=== PATIENT | male | born 1930 | race Hispanic/Latino ===

== ENCOUNTER 2018-02-23 07:49 | Outpatient (CLI) | payer MEDICARE, OTHER ==
--- NOTE | 2018-02-23 11:29 | RAD ---
UPPER GI: Date: 02/23/18 HISTORY: Epigastric pain. EXPOSURE: 2.1 minutes. 138.79 mGy*cm^2. FINDINGS: Initial 1 view of the abdomen demonstrates a nonspecific bowel gas pattern. No suspicious densities i n the abdomen or pelvis. Surgical clips are noted in the right upper quadrant and left and right carmen pelvis. The cervical and thoracic esophagus have an overall normal course and caliber. There is a small amoun t of esophageal dysmotility with tertiary contractions. Small amount of gastroesophageal reflux is no libby during intermittent fluoroscopy. The gastric mucosal is grossly unremarkable. Evaluation is somewhat limited. Visualized small bowel l oops have an overall normal appearance. IMPRESSION: 1. Mild component of esophageal dysmotility with tertiary contraction. 2. Small amount of gastroesophageal reflux disease. POS: [facility]
== END 2018-02-23 07:50 | disposition home or self-care (01) ==
LOC: RAD 07:49
PROVIDERS: ATTEND Family Medicine
DX: R10.13 Epigastric pain (principal); K21.9 Gastro-esophageal reflux disease without esophagitis; K22.4 Dyskinesia of esophagus; K22.2 Esophageal obstruction
CPT/HCPCS: 74247

== ENCOUNTER 2018-09-11 15:57 | Emergency (ER) | payer MEDICARE, OTHER ==
[2018-09-11] MEDS ORDERED: Acetaminophen 500 MG TAB ONE (17:49)
--- NOTE | 2018-09-11 17:51 | CT ---
FCT Brain WO Con: 09/11/2018 5:26 PM CLINICAL HISTORY: Fall, head injury, pain. COMPARISON: None. FINDINGS: Hemorrhage: None. Ventricular system: Age appropriate in size. Cerebral parenchyma: Scattered hypodensities indicative of moderate chronic ischemic disease Midline shift: None. Calvarium: Normal. There is posterior left parietal scalp hematoma. Visualized Paranasal sinuses: Mild mucosal thickening. IMPRESSION: No acute intracranial abnormalities.
--- NOTE | 2018-09-11 17:53 | CT ---
CT CERVICAL SPINE NONCONTRAST: 09/11/18 HISTORY: 87-year-old male status post acute cervical trauma from fall. FINDINGS: There are no jumped or perched facets. There is no evidence of acute fracture. The vertebral body h eights are maintained. There is no prevertebral soft tissue swelling. There are degenerative disc c hanges and facet osteoarthrosis. IMPRESSION: 1) Cervical spondylosis. 2) No evidence of acute fracture or acute traumatic subluxation. sky [] POS: [facility]
== END 2018-09-11 19:18 | disposition home or self-care (01) ==
LOC: ERS 15:57
DX: S00.01XA Abrasion of scalp, initial encounter (principal); I10 Essential (primary) hypertension; E11.9 Type 2 diabetes mellitus without complications; Z79.84 Long term (current) use of oral hypoglycemic drugs; Z79.899 Other long term (current) drug therapy; Z79.82 Long term (current) use of aspirin; W17.89XA Other fall from one level to another, initial encounter
CPT/HCPCS: 70450; 72125; 93005

== ENCOUNTER 2020-06-26 13:19 | Inpatient (IN) | payer MEDICARE, OTHER ==
[2020-06-26] MEDS ORDERED: Famotidine/PF 20 mg/2ml Vial ONE (14:01)
[2020-06-26] MEDS ORDERED: methylPREDNISolone Sod Succ/PF 125 MG/2 ML VIAL ONE (14:01)
[2020-06-26] MEDS ORDERED: diphenhydrAMINE 50 MG/ML VIAL ONE (14:01)
[2020-06-26 14:08] LABS: #Eosinphils 0.3 thou/uL (0.0-0.7); #Lymphocytes 0.5 thou/uL (1.20-3.40); #Monocytes 0.4 thou/uL (0.11-0.59); #Neutrophils 5.1 thou/uL (1.40-6.50); %Basophils 0.1 % (0.0-1.0); %Lymphocytes 8.4 % (21.0-51.0); %Monocytes 5.5 % (0.0-10.0); Hemoglobin 15.6 g/dL (14.0-18.0); Mean Corpuscular HGB CONC 33.4 g/dL (32.0-36.0); Mean Corpuscular Hemoglobin 30.8 pg (27.0-31.0); Mean Corpuscular Volume 92.1 fL (78.0-98.0); Mean Platelet Volume 7.4 fL (7.4-10.4); Platelet Count 185 thou/uL (130-400); RBC Distribution Width 13.2 % (11.5-14.5); Red Blood Cell (RBC) Count 5.08 mill/uL (4.70-6.10); White Blood Cell (WBC) Count 6.3 thou/uL (4.8-10.8)
--- NOTE | 2020-06-26 14:26 | RAD ---
CHEST 1 VIEW: Date: 06/26/2020 HISTORY: Weakness. COMPARISON: Radiograph of 01/28/2017. FINDINGS: Lungs are slightly hypoinflated. No confluent air space consolidation, pneumothorax, or effusion. No acute osseous abnormality. IMPRESSION: Right rotator cuff insufficiency. IMPRESSION: Cardiomegaly and lung hypoinflation. POS: [facility]
[2020-06-26 14:29] LABS: ALT (SGPT) 17 U/L (8-55); AST (SGOT) 26 U/L (5-34); Albumin 4.1 g/dL (3.4-4.8); Alkaline Phosphatase 61 U/L (40-110); Anion Gap 16 mmol/L (10-20); BUN (Urea Nitrogen) 16 mg/dL (8.4-25.7); Bilirubin, Total 1.4 mg/dL (0.2-1.2); Calc. Creatinine Clearance 0 mL/min (70-130); Calcium 9.1 mg/dL (7.8-10.44); Carbon Dioxide 24 mmol/L (23-31); Chloride 101 mmol/L (98-107); Globulin 3.1 g/dL (2.4-3.5); Glucose 181 mg/dL (83-110); Potassium 3.6 mmol/L (3.5-5.1); Protein, Total 7.2 g/dL (5.8-8.1); Sodium 137 mmol/L (136-145)
[2020-06-26 14:50] LABS: CKMB 2.4 ng/mL (0-6.6)
[2020-06-26] MEDS ORDERED: Acetaminophen 500 MG TAB ONE (14:55)
[2020-06-26 17:34] LABS: Troponin I 0.048 ng/mL (< 0.028)
[2020-06-26 18:03] LABS: Lactic Acid 1.7 mmol/L (0.5-2.2)
[2020-06-26] MEDS ORDERED: Acetaminophen 325 MG TAB PO PRN (18:11)
[2020-06-26 18:17] LABS: Bilirubin Negative (Negative); Blood, Urine Trace (Negative); Glucose, Urine (Dipstick) Negative (Negative); Ketone, Urine Negative (Negative); Leukocyte Negative (Negative); Nitrite Positive (Negative); Protein, Urine (Dipstick) Trace mg/dL (Neg-Trace); Urobilinogen 0.2 mg/dL (Less than 2)
--- NOTE | 2020-06-26 18:22 | PDOC.HHP ---
Hospitalist HPI - History of Present Illness Weakness and rash History of Present Illness: Patient is an 89-year-old male with a history of diabetes, hypertension, hyperlipidemia, mild coronary disease, CKD stage III, prostate cancer. He presented to the emergency department with rash and generalized weakness. The patient follows with Dr. Sy for cardiology. He apparently was recently started on amiodarone and Eliquis on June 16 for atrial fibrillation. On June 21 he also received a COVID-19 vaccine dose. Within 48 hours of that the patient started experiencing some generalized rash. Has dense modestly pruritic erythematous macules over his entire body. He had some associated generalized weakness. He had some swelling of his face and throat. His lips especially were swollen. He reported feeling like he had something in his throat that he could not clear. He did not have associated shortness of breath. He ultimately became so weak that he had inability to get out of the bathtub. He was subsequently brought to the emergency department. He denies any fevers or chills. ED Course: The emergency department patient was felt to have angioedema or allergic reaction. He was given IV methylprednisolone 125 mg. Was also given famotidine, Tylenol, diphenhydramine 50 mg and 1 L of fluids. Since that time the patient has had significant improvement in the swelling in his face. The patient and his son confirm this. The nurse who is caring for him confirmed it as well. He has been able to eat. Hospitalist ROS - Review of Systems Constitutional: reports: weakness. denies: fever, chills Respiratory: denies: cough, shortness of breath, SOB with excertion Cardiovascular: denies: chest pain, palpitations Gastrointestinal: denies: nausea, vomiting, abdominal pain Genitourinary: denies: dysuria, frequency Neurological: reports: weakness All other systems reviewed; all pertinent +/- noted in HPI/Subj - Medication Medications: metFORMIN FriJun 26, 2020 13:55 ROSEANNE Chatman Jennifer TABLET : Strength - 500 mg : ORAL Patient Dose: 1 tab(s) Oral once a day (in the evening).W/MEAL. Crestor FriJun 26, 2020 13:55 ROSEANNE Chatman Jennifer TABLET : Strength - 10 mg : ORAL Patient Dose: 10 mg Oral once a day (at bedtime). aspirin oral FriJun 26, 2020 13:56 ROSEANNE Chatman Jennifer TABLET : Strength - 81 mg : ORAL Patient Dose: 1 tab(s) Oral once a day. lisinopril FriJun 26, 2020 13:57 ROSEANNE Chatman Jennifer tablet : Strength - 10 mg : ORAL Patient Dose: 1 tab(s) Oral once a day (in the morning). amiodarone oral FriJun 26, 2020 13:57 ROSEANNE Chatman Jennifer tablet : Strength - 200 mg : ORAL Patient Dose: 1 tab(s) Oral 2 times a day. iron ER capsule,extended release FriJun 26, 2020 13:58 ROSEANNE Chatman Jennifer capsule, extended release : Strength - 325 mg (65 mg iron) : ORAL Patient Dose: 1 tab(s) Oral once a day. carvedilol FriJun 26, 2020 13:58 ROSEANNE Chatman Jennifer tablet : Strength - 3.125 mg : ORAL Patient Dose: 1 tab(s) Oral 2 times a day (before meals). Eliquis FriJun 26, 2020 13:59 ROSEANNE Chatman Jennifer tablet : Strength - 5 mg : ORAL Patient Dose: 1 tab(s) Oral 2 times a day. Hospitalist History - Past Medical History Cardiac: reports: AFIB, CAD, HTN, Hyperlipidemia Heme/Onc: reports: Cancer (Prostate cancer) Renal/: reports: Chronic renal insuff (Stage III) - Past Surgical History Past Surgical History: reports: Cholecystectomy, Other (Radical prostatectomy) - Family History Family History: reports: diabetes mellitus, hypertension - Social History Smoking Status: Former smoker (Very minimal when he was in the in the 1950s) Alcohol: reports: None Drugs: reports: none Living Situation: With Family - Exam General Appearance: NAD, awake alert Eye: PERRL ENT - other findings: This point is mildly swollen lips. No OP lesions Neck: supple, symmetric, no JVD Heart: no murmur, no gallops, no rubs, irregular Respiratory: CTAB, no wheezes, no rales, no ronchi Gastrointestinal: soft, non-tender, non-distended, normal bowel sounds, no palpable masses, no hepatomegaly, no splenomegaly Extremities: no cyanosis, no clubbing, no edema Skin - other findings: Diffuse macular erythema diffusely. Worst on the back. Neurological: no focal deficits Musculoskeletal: normal tone, generalized weakness Psychiatric: normal affect, normal behavior Hospitalist Results - Labs Result Diagrams: 06/26/20 13:45 06/26/20 13:45 Lab results: WBC 6.3 thou/uL (4.8-10.8) 06/26/20 13:45 Hgb 15.6 g/dL (14.0-18.0) 06/26/20 13:45 Hct 46.7 % (42.0-52.0) 06/26/20 13:45 MCV 92.1 fL (78.0-98.0) 06/26/20 13:45 Plt Count 185 thou/uL (130-400) 06/26/20 13:45 Neutrophils % 81.0 % (42.0-75.0) H 06/26/20 13:45 Sodium 137 mmol/L (136-145) 06/26/20 13:45 Potassium 3.6 mmol/L (3.5-5.1) 06/26/20 13:45 Chloride 101 mmol/L (98-107) 06/26/20 13:45 Carbon Dioxide 24 mmol/L (23-31) 06/26/20 13:45 BUN 16 mg/dL (8.4-25.7) 06/26/20 13:45 Creatinine 1.49 mg/dL (0.7-1.3) H 06/26/20 13:45 Glucose 181 mg/dL (83-110) H 06/26/20 13:45 Lactic Acid 1.7 mmol/L (0.5-2.2) 06/26/20 17:38 Calcium 9.1 mg/dL (7.8-10.44) 06/26/20 13:45 Total Bilirubin 1.4 mg/dL (0.2-1.2) H 06/26/20 13:45 AST 26 U/L (5-34) 06/26/20 13:45 ALT 17 U/L (8-55) 06/26/20 13:45 Alkaline Phosphatase 61 U/L (40-110) 06/26/20 13:45 CK-MB (CK-2) 2.4 ng/mL (0-6.6) 06/26/20 13:45 Troponin I 0.048 ng/mL (< 0.028) H 06/26/20 16:48 Serum Total Protein 7.2 g/dL (5.8-8.1) 06/26/20 13:45 Albumin 4.1 g/dL (3.4-4.8) 06/26/20 13:45 Hospitalist H&P A/P - Problem (1) Allergic reaction Code(s): T78.40XA - ALLERGY, UNSPECIFIED, INITIAL ENCOUNTER Status: Acute (2) Atrial fibrillation Code(s): I48.91 - UNSPECIFIED ATRIAL FIBRILLATION Status: Acute (3) Diabetes Code(s): E11.9 - TYPE 2 DIABETES MELLITUS WITHOUT COMPLICATIONS Status: Acute (4) HTN (hypertension) Code(s): I10 - ESSENTIAL (PRIMARY) HYPERTENSION Status: Acute (5) Weakness Code(s): R53.1 - WEAKNESS Status: Acute - Plan Plan: Allergic reaction: Strongly suspect this patient has had an allergic reaction to the COVID-19 vaccine. This rash initially occurred within 48 hours of the vaccine. Other possibilities include the amiodarone and Eliquis which were started the week prior. Patient has had swelling of the lips and apparently the pharynx at some point as well based on his symptoms. He has received antihistamines and steroids in the emergency department and appears to be substantially improved from the swelling perspective. He has persistent diffuse macular erythema. We will continue steroids and add loratadine and famotidine. We will observe overnight just to ensure his airway stays patent. Atrial fibrillation: Patient has been on amiodarone and Eliquis. Do not suspect these as culprit in his reaction. Nonetheless we will hold those for now and potentially discuss with cardiology in the morning. Hypertension: Patient is on an MARCIA inhibitor. I do not believe this is angioedema from an MARCIA inhibitor. Resume his usual home dose. Diabetes mellitus: Patient will likely have significant hyperglycemia because of the steroids. We will continue with his home Metformin and continue to monitor his blood sugars. May need to add sliding scale insulin. Generalized weakness: May be associated with his atrial fibrillation or his medication reaction. We will ask physical therapy to assess him.
[2020-06-26 18:25] LABS: Clarity Clear (Clear)
[2020-06-26 18:26] LABS: Bacteria/HPF 2+ HPF (None Seen); RBC/HPF None Seen HPF (0-3); Squamous Epithelial 0-3 HPF (0-3); WBC/HPF None Seen HPF (0-3)
[2020-06-26] MEDS ORDERED: Dextrose 50% Abboject 50 ML SYRINGE SLOW IVP PRN (18:37)
[2020-06-26] MEDS ORDERED: Dextrose 5% in Water 1,000 ML IV PRN (18:37)
[2020-06-26] MEDS ORDERED: Famotidine 20 MG TAB ONE (20:56)
[2020-06-26] MEDS: Famotidine 20 MG TAB PO SCH (21:03)
[2020-06-26] MEDS: Rosuvastatin 10 MG TAB PO SCH (21:03)
[2020-06-26] MEDS: Loratadine 10 MG TAB PO SCH (21:03)
[2020-06-26] MEDS: methylPREDNISolone Sod Succ 40 MG VIAL IVP SCH (23:26)
[2020-06-26 23:46] VITALS: BMI 26.9
[2020-06-27 04:50] LABS: Anion Gap 14 mmol/L (10-20); BUN (Urea Nitrogen) 19 mg/dL (8.4-25.7); Calc. Creatinine Clearance 47 mL/min (70-130); Calcium 8.9 mg/dL (7.8-10.44); Carbon Dioxide 24 mmol/L (23-31); Chloride 105 mmol/L (98-107); Glucose 218 mg/dL (83-110); Potassium 3.7 mmol/L (3.5-5.1); Sodium 139 mmol/L (136-145)
[2020-06-27] MEDS: methylPREDNISolone Sod Succ 40 MG VIAL IVP SCH ×3 (05:38→18:01)
[2020-06-27] MEDS: HumaLOG 300 UNITS/3 ML VIAL SC PRN ×3 (06:26→17:54)
[2020-06-27] MEDS: Loratadine 10 MG TAB PO SCH ×2 (08:18→19:49)
[2020-06-27] MEDS: Lisinopril 10 MG TAB PO SCH (08:18)
[2020-06-27] MEDS: Carvedilol 3.125 MG TAB PO SCH ×2 (08:18→17:57)
[2020-06-27] MEDS: Aspirin 81 mg Enteric Coated Tablet PO SCH (08:18)
[2020-06-27] MEDS ORDERED: FLU VACC QS2020-21(65YR UP)/PF 240 MCG/0.7 ML SYRINGE IM ONE (09:00)
--- NOTE | 2020-06-27 09:53 | PDOC.HOSPP ---
- Subjective Encounter Date: 06/27/20 Encounter Time: 09:00 Subjective: still has rash with itching over his neck and back area no c/o palp or chest pain is trying to get a shower now - Objective Vital Signs & Weight: Vital Signs (12 hours) Temp Pulse Resp BP BP Pulse Ox 06/27/20 08:18 178/86 H 06/27/20 08:00 97.5 F L 72 16 178/86 H 97 06/27/20 07:53 98 06/27/20 07:00 97 F L 72 16 178/86 H 97 06/27/20 04:00 97.4 F L 90 20 175/101 H 98 Weight Weight 176 lb 14.4 oz I&O: 06/26/20 06/27/20 06/28/20 06:59 06:59 06:59 Intake Total 480 Output Total 300 Balance 180 Result Diagrams: 06/26/20 13:45 06/27/20 04:12 Additional Labs: Accuchecks 06/27/20 06/26/20 06:01 23:00 POC Glucose 210 H 241 H Hospitalist ROS - Medication Medications: Active Medications Generic Name Dose Route Start Last Admin Trade Name Freq PRN Reason Stop Dose Admin Aspirin 81 mg 06/27/20 09:00 06/27/20 08:18 Aspirin 81 Mg Enteric Coated Tablet PO 81 mg DAILY DEMAR Administration Carvedilol 3.125 mg 06/27/20 08:00 06/27/20 08:18 Carvedilol 3.125 Mg Tab PO 3.125 mg BID-WM DEMAR Administration Famotidine 20 mg 06/26/20 21:00 06/26/20 21:03 Famotidine 20 Mg Tab PO 20 mg 2100 DEMAR Administration Insulin Human Lispro 0 units 06/26/20 18:37 06/27/20 06:26 Humalog 300 Units/3 Ml Vial SC 3 unit .MILD SLIDING SCALE PRN Administration Mild Correctional Scale Lisinopril 10 mg 06/27/20 09:00 06/27/20 08:18 Lisinopril 10 Mg Tab PO 10 mg DAILY DEMAR Administration Loratadine 10 mg 06/26/20 21:00 06/27/20 08:18 Loratadine 10 Mg Tab PO 10 mg BID DEMAR Administration Methylprednisolone Sodium Succinate 40 mg 06/26/20 23:59 01/19/21 05:38 Methylprednisolone Sod Succ 40 Mg Vial IVP 40 mg Q6HR DEMAR Administration Rosuvastatin Calcium 10 mg 06/26/20 21:00 06/26/20 21:03 Rosuvastatin 10 Mg Tab PO 10 mg HS DEMAR Administration - Exam General Appearance: awake alert Eye: PERRL, anicteric sclera ENT: no oropharyngeal lesions, moist mucosa Neck: supple, no JVD Heart: RRR, no murmur Respiratory: no wheezes, no rales, no ronchi Gastrointestinal: soft, non-tender, non-distended, normal bowel sounds Extremities: no cyanosis, no edema Skin - other findings: has raised erythematous lesions all over Neurological: cranial nerve grossly intact, no focal deficits Psychiatric: normal affect Hosp A/P (1) Allergic reaction Code(s): T78.40XA - ALLERGY, UNSPECIFIED, INITIAL ENCOUNTER Status: Acute Qualifiers: Encounter type: subsequent encounter Qualified Code(s): T78.40XD - Allergy, unspecified, subsequent encounter (2) CAD (coronary artery disease) Code(s): I25.10 - ATHSCL HEART DISEASE OF [place] CORONARY ARTERY W/O ANG PCTRS Status: Chronic Qualifiers: Coronary Disease-Associated Artery/Lesion type: [place] artery [place] vs. transplanted heart: [place] heart Associated angina: without angina Qualified Code(s): I25.10 - Atherosclerotic heart disease of [place] coronary artery without angina pectoris (3) Atrial fibrillation Code(s): I48.91 - UNSPECIFIED ATRIAL FIBRILLATION Status: Chronic Qualifiers: Atrial fibrillation type: longstanding persistent Qualified Code(s): I48.11 - Longstanding persistent atrial fibrillation (4) Weakness Code(s): R53.1 - WEAKNESS Status: Acute (5) Diabetes Code(s): E11.9 - TYPE 2 DIABETES MELLITUS WITHOUT COMPLICATIONS Status: Chronic Qualifiers: Diabetes mellitus type: type 2 Diabetes mellitus terminal clerk insulin use: without terminal clerk use (6) HTN (hypertension) Code(s): I10 - ESSENTIAL (PRIMARY) HYPERTENSION Status: Chronic Qualifiers: Hypertension type: essential hypertension Qualified Code(s): I10 - Essential (primary) hypertension (7) Prostate CA Code(s): C61 - MALIGNANT NEOPLASM OF PROSTATE Status: Chronic - Plan rash is still persistent with itching but has gotten better per patient is on asp, coreg, lisinopril, metformin, steroids, crestor off amiodarone and eliquis for now, await 's adv mobilize as tolerated hemostable
[2020-06-27 14:17] LABS: SARS-CoV-2 PCR by NAA Not Detected (NotDetected)
[2020-06-27] MEDS ORDERED: metFORMIN 500 MG TAB PO SCH (17:00)
[2020-06-27] MEDS: Rosuvastatin 10 MG TAB PO SCH (19:49)
[2020-06-27] MEDS: Famotidine 20 MG TAB PO SCH (19:49)
[2020-06-28] MEDS: methylPREDNISolone Sod Succ 40 MG VIAL IVP SCH ×3 (00:47→12:05)
[2020-06-28] MEDS: HumaLOG 300 UNITS/3 ML VIAL SC PRN ×2 (05:40→12:37)
[2020-06-28] MEDS ORDERED: cefTRIAXone\\ROCEPHIN 1 GM in Sodium Chloride 0.9% 100 ML IVPB SCH (06:00)
[2020-06-28] MEDS: Aspirin 81 mg Enteric Coated Tablet PO SCH (08:49)
[2020-06-28] MEDS: Carvedilol 3.125 MG TAB PO SCH (08:49)
[2020-06-28] MEDS: Lisinopril 10 MG TAB PO SCH (08:49)
[2020-06-28] MEDS: Loratadine 10 MG TAB PO SCH (08:49)
[2020-06-28] MEDS ORDERED: Enoxaparin Sodium 80 MG/0.8 ML SYRINGE SC SCH (09:00)
--- NOTE | 2020-06-28 09:37 | CON ---
DATE OF CONSULTATION: 06/16/2020 HISTORY OF PRESENT ILLNESS: Charan Drake is an 89-year-old male, whom I have followed for many decades. In December 1989, underwent cardiac catheterization, which revealed no significant coronary artery disease. He again underwent cardiac catheterization in November 2016 after Lexiscan Cardiolite test showed a fixed proximal inferior wall defect when he was evaluated for chest discomfort. On November 27, 2016, a catheterization showed he had mild global hypokinesis with ejection fraction of 40% to 45%. The mid LAD had 50% stenosis, 30% 1st diagonal stenosis, 50% mid circumflex stenosis, 50% 1st obtuse marginal stenosis, 20% mid RCA, and 20% posterolateral. Subsequent echos that showed ejection fraction of 45% to 50% with the most recent echo in December 2019. He has continued to be followed in the office for his mild cardiomyopathy, coronary artery disease, hypertension, hyperlipidemia. He did have some dizziness at times and his carvedilol dose was reduced. He was seen on June 16, 2020, for routine followup and found to be in atrial fibrillation. He was placed on Eliquis 5 mg b.i.d. and amiodarone 200 mg b.i.d. He also received coronavirus vaccine on June 21. On June 23, he began to notice erythematous macules over his entire body that were very pruritic. He had some increased weakness, facial and throat swelling. He denies any chest discomfort or shortness of breath. He ultimately came to the emergency room on June 26 and was given methylprednisolone 125 mg IV, famotidine, diphenhydramine 50 mg, and intravenous fluids. He has had significant improvement in his facial and lip swelling as well as in the itching of the rash. PAST MEDICAL HISTORY: 1. Mild coronary artery disease. In November 2016, catheterization, mild left ventricular dysfunction with last ejection fraction of 45% to 50%. 2. Diabetes. 3. Hypercholesterolemia. 4. Ventricular bigeminy. MEDICATIONS: 1. Amiodarone 200 mg b.i.d. 2. Eliquis 5 mg b.i.d. 3. Aspirin 81 daily. 4. Carvedilol 3.125 b.i.d. 5. Lisinopril 10 mg daily. 6. Ferrous sulfate 325 daily. 7. Metformin 500 mg q.p.m. 8. Rosuvastatin 10 mg at bedtime. ALLERGIES: NONE. SOCIAL HISTORY: He is a former smoker. He does not drink. FAMILY HISTORY: Positive family history of coronary artery disease. REVIEW OF SYSTEMS: A 10-point review of systems is otherwise unremarkable. PHYSICAL EXAMINATION: VITAL SIGNS: Blood pressure 157/71, pulse of 51. HEENT: PERRL. NECK: Supple. CHEST: Clear. CARDIAC: S1 and S2 normal without any S3, S4, or murmurs. Carotid upstrokes normal without bruits. ABDOMEN: Normal bowel sounds without tenderness or organomegaly. EXTREMITIES: Revealed no clubbing, cyanosis, or edema. NEUROLOGIC: Grossly intact. SKIN: Warm and dry. He does have a maculopapular rash overall in his body, which at the present time is not significantly erythematous. LABORATORY DATA: EKG revealed atrial fibrillation with right bundle-branch block, nonspecific T-wave abnormality. CBC is unremarkable. Sodium 139, potassium 3.7, chloride 105, carbon dioxide 24, BUN 19, creatinine 1.22. Creatinine was 1.49 on admission. Troponin I 0.050 (the patient has chronically elevated troponin I). Earlier this month, his LDL was 37. IMPRESSION: 1. Generalized maculopapular rash, which has responded to intravenous steroids. He has been on very chronic medications until June 16 when Eliquis 5 mg b.i.d. and amiodarone 200 mg b.i.d. were added. He also had COVID vaccine 48 hours prior to onset of this rash. 2. Atrial fibrillation, first seen on June 16, 2020. He is asymptomatic with this. 3. History of bradycardia. 4. Nonischemic cardiomyopathy with ejection fraction of 40% to 45% at catheterization in November 2016. Most recent echo in December 2019 revealed ejection fraction of 45% to 50%. 5. Mild coronary artery disease. 6. History of ventricular bigeminy. 7. Hypertension. 8. Former smoker. 9. Diabetes. 10. Hypercholesterolemia, well controlled. 11. Positive family history. PLAN: I agree with discontinuation of the Eliquis and amiodarone at this time. From a time course, the most likely allergic reaction would be from the coronavirus vaccine. Since he is off Eliquis at this time, I will place him on Lovenox. Certainly consideration needs to be given to rechallenging with Eliquis and amiodarone once his rash has resolved. Job ID: [id number] MTDD
[2020-06-28 13:05] VITALS: BP 134/67; TEMP 98.1
--- NOTE | 2020-06-28 13:55 | PDOC.HHP ---
Hospitalist ROS - Medication Medications: Active Medications Generic Name Dose Route Start Last Admin Trade Name Silverioq PRN Reason Stop Dose Admin Aspirin 81 mg 06/27/20 09:00 06/28/20 08:49 Aspirin 81 Mg Enteric Coated Tablet PO 81 mg DAILY DEMAR Administration Carvedilol 3.125 mg 06/27/20 08:00 06/28/20 08:49 Carvedilol 3.125 Mg Tab PO 3.125 mg BID-WM DEMAR Administration Enoxaparin Sodium 80 mg 06/28/20 09:00 06/28/20 09:43 Enoxaparin Sodium 80 Mg/0.8 Ml Syringe SC 80 mg 0900,2099 DEMAR Administration Famotidine 20 mg 06/26/20 21:00 06/27/20 19:49 Famotidine 20 Mg Tab PO 20 mg 2100 DEMAR Administration Ceftriaxone Sodium 1 gm/ 100 mls @ 200 mls/hr 06/28/20 06:00 06/28/20 05:39 Sodium Chloride IVPB 100 mls Q24HR DEMAR Administration Insulin Human Lispro 0 units 06/26/20 18:37 06/28/20 12:37 Humalog 300 Units/3 Ml Vial SC 3 unit .MILD SLIDING SCALE PRN Administration Mild Correctional Scale Lisinopril 10 mg 06/27/20 09:00 06/28/20 08:49 Lisinopril 10 Mg Tab PO 10 mg DAILY DEMAR Administration Loratadine 10 mg 06/26/20 21:00 06/28/20 08:49 Loratadine 10 Mg Tab PO 10 mg BID DEMAR Administration Metformin HCl 500 mg 06/27/20 17:00 06/27/20 17:56 Metformin 500 Mg Tab PO 500 mg QPM-WM DEMAR Administration Methylprednisolone Sodium Succinate 40 mg 06/26/20 23:59 06/28/20 12:05 Methylprednisolone Sod Succ 40 Mg Vial IVP 40 mg Q6HR DEMAR Administration Rosuvastatin Calcium 10 mg 06/26/20 21:00 06/27/20 19:49 Rosuvastatin 10 Mg Tab PO 10 mg HS DEMAR Administration Hospitalist History - Past Medical History Cardiac: reports: AFIB, CAD, HTN, Hyperlipidemia Heme/Onc: reports: Cancer (Prostate cancer) Renal/: reports: Chronic renal insuff (Stage III) - Past Surgical History Past Surgical History: reports: Cholecystectomy, Other (Radical prostatectomy) - Family History Family History: reports: diabetes mellitus, hypertension - Social History Smoking Status: Former smoker (Very minimal when he was in the in the 1950s) Alcohol: reports: None Drugs: reports: none Living Situation: With Family Hospitalist Results - Labs Result Diagrams: 06/26/20 13:45 06/27/20 04:12 Lab results: WBC 6.3 thou/uL (4.8-10.8) 06/26/20 13:45 Hgb 15.6 g/dL (14.0-18.0) 06/26/20 13:45 Hct 46.7 % (42.0-52.0) 06/26/20 13:45 MCV 92.1 fL (78.0-98.0) 06/26/20 13:45 Plt Count 185 thou/uL (130-400) 06/26/20 13:45 Neutrophils % 81.0 % (42.0-75.0) H 06/26/20 13:45 Sodium 139 mmol/L (136-145) 06/27/20 04:12 Potassium 3.7 mmol/L (3.5-5.1) 06/27/20 04:12 Chloride 105 mmol/L (98-107) 06/27/20 04:12 Carbon Dioxide 24 mmol/L (23-31) 06/27/20 04:12 BUN 19 mg/dL (8.4-25.7) 06/27/20 04:12 Creatinine 1.22 mg/dL (0.7-1.3) 06/27/20 04:12 Glucose 218 mg/dL (83-110) H 06/27/20 04:12 Lactic Acid 1.7 mmol/L (0.5-2.2) 06/26/20 17:38 Calcium 8.9 mg/dL (7.8-10.44) 06/27/20 04:12 Total Bilirubin 1.4 mg/dL (0.2-1.2) H 06/26/20 13:45 AST 26 U/L (5-34) 06/26/20 13:45 ALT 17 U/L (8-55) 06/26/20 13:45 Alkaline Phosphatase 61 U/L (40-110) 06/26/20 13:45 CK-MB (CK-2) 2.4 ng/mL (0-6.6) 06/26/20 13:45 Troponin I 0.050 ng/mL (< 0.028) H 06/26/20 20:11 Serum Total Protein 7.2 g/dL (5.8-8.1) 06/26/20 13:45 Albumin 4.1 g/dL (3.4-4.8) 06/26/20 13:45 Urine Ketones Negative mg/dL (Negative) 06/26/20 17:36 Urine Blood Trace (Negative) 06/26/20 17:36 Urine Nitrite Positive (Negative) A 06/26/20 17:36 Ur Leukocyte Esterase Negative (Negative) 06/26/20 17:36 Urine RBC None Seen HPF (0-3) 06/26/20 17:36 Urine WBC None Seen HPF (0-3) 06/26/20 17:36 Ur Squamous Epith Cells 0-3 HPF (0-3) 06/26/20 17:36 Urine Bacteria 2+ HPF (None Seen) A 06/26/20 17:36 Hospitalist H&P A/P - Problem (1) Allergic reaction Code(s): T78.40XA - ALLERGY, UNSPECIFIED, INITIAL ENCOUNTER Status: Acute Qualifiers: Encounter type: subsequent encounter Qualified Code(s): T78.40XD - Allergy, unspecified, subsequent encounter (2) Atrial fibrillation Code(s): I48.91 - UNSPECIFIED ATRIAL FIBRILLATION Status: Chronic Qualifiers: Atrial fibrillation type: longstanding persistent Qualified Code(s): I48.11 - Longstanding persistent atrial fibrillation (3) Diabetes Code(s): E11.9 - TYPE 2 DIABETES MELLITUS WITHOUT COMPLICATIONS Status: Chronic Qualifiers: Diabetes mellitus type: type 2 Diabetes mellitus fpc insulin use: without watermelon harvesting supervisor use (4) HTN (hypertension) Code(s): I10 - ESSENTIAL (PRIMARY) HYPERTENSION Status: Chronic Qualifiers: Hypertension type: essential hypertension Qualified Code(s): I10 - Essential (primary) hypertension (5) Weakness Code(s): R53.1 - WEAKNESS Status: Acute
--- NOTE | 2020-06-28 14:19 | PDOC.DS.DS ---
Provider - Provider Date of Admission: 06/27/20 14:10 Date of Discharge: 06/28/20 Admitting Provider: Iban Gold MD Consultations: Cardiology Primary Care Physician: Austen Doherty MD Course - Hospital Course Hospital Course: This patient is a 89-year-old male who presented via the emergency department initially. The patient had a history of atrial fibrillation which was apparently relatively recently diagnosed. He was followed by Dr. Sy and started on amiodarone and Eliquis. About a week after that the patient received his first coronavirus vaccine. Within 48 hours of that the patient had significant diffuse pruritic erythematous macules and some swelling of his face and lips. He was also feeling generally weak and having a difficult time even getting up. He was given steroids and antihistamines in the emergency de partment. There his swelling started to recede fairly rapidly. Patient was placed in observation status. He continued to receive some IV steroids. He was held off of his amiodarone and Eliquis. He was seen by Dr. Sy who agreed with holding the amiodarone and Eliquis although it was very likely that the patient's reaction was in fact related to the Covid vaccination. Patient's macules were receded significantly. The erythema was much reduced. With symptoms improved significantly. His strength improved significantly. He was felt to be stable for discharge to home. The plan will be to continue with Lovenox injections and remain on steroids for now. Once he has follow-up with Alison Sy and the reaction is fully resolved he will likely be rechallenged with the Eliquis alone to prove that it was not the culprit. Patient was instructed on self injection of the Lovenox. - Labs Lab Results: 06/26/20 13:45 06/27/20 04:12 Abnormal Lab Results - Last 48 hrs 06/26/20 13:45: Creatinine 1.49 H, Total Bilirubin 1.4 H 06/26/20 13:45: Troponin I 0.044 H 06/26/20 14:53: Lactic Acid 2.4 H 06/26/20 16:48: Troponin I 0.048 H 06/26/20 17:36: Urine Nitrite Positive A, Urine Bacteria 2+ A 06/26/20 20:11: Troponin I 0.050 H Microbiology - Entire Visit 06/26/20 14:43 Venous blood - Left Arm Blood Culture - Preliminary NO GROWTH AT 48 HOURS 06/26/20 14:32 Venous blood - Right Hand Blood Culture - Preliminary NO GROWTH AT 48 HOURS 06/26/20 17:36 Urine voided Urine Culture - Preliminary Escherichia coli - Physical Exam Vitals: Vital Signs (12 hours) Temp Pulse Resp BP BP Pulse Ox 06/28/20 12:00 98.1 F 64 16 134/67 98 06/28/20 08:55 97 06/28/20 08:43 97.7 F 70 16 181/91 H 97 06/28/20 07:27 97 06/28/20 04:00 97.5 F L 51 L 17 153/71 H 97 Weight Weight 176 lb 14.4 oz Physical Exam: The patient was seen and examined on the day of discharge. Erythematous macules are substantially faded. Problem - Problem (1) Allergic reaction Code(s): T78.40XA - ALLERGY, UNSPECIFIED, INITIAL ENCOUNTER Status: Acute Qualifiers: Encounter type: subsequent encounter Qualified Code(s): T78.40XD - Allergy, unspecified, subsequent encounter (2) Atrial fibrillation Code(s): I48.91 - UNSPECIFIED ATRIAL FIBRILLATION Status: Chronic Qualifiers: Atrial fibrillation type: longstanding persistent Qualified Code(s): I48.11 - Longstanding persistent atrial fibrillation (3) Diabetes Code(s): E11.9 - TYPE 2 DIABETES MELLITUS WITHOUT COMPLICATIONS Status: Chronic Qualifiers: Diabetes mellitus type: type 2 Diabetes mellitus correction insulin use: without ocean transportation intermediary use (4) HTN (hypertension) Code(s): I10 - ESSENTIAL (PRIMARY) HYPERTENSION Status: Chronic Qualifiers: Hypertension type: essential hypertension Qualified Code(s): I10 - Essential (primary) hypertension (5) Weakness Code(s): R53.1 - WEAKNESS Status: Acute - Time spent with Patient (mins): 32 Plan - Discharge Medications Prescriptions: Enoxaparin Sodium [Lovenox] 80 mg SC Q12HR #20 syringe RX: Enoxaparin Sodium [Lovenox] 80 mg SC 0900,2100 #20 syringe RX: predniSONE 20 mg PO BID-WM #11 tab Home Medications: Medication Instructions Recorded Confirmed Type RX: Aspirin [Aspirin EC] 81 mg PO DAILY 11/26/16 06/26/20 History RX: Lisinopril 10 mg PO DAILY 11/26/16 06/26/20 History RX: Rosuvastatin Calcium [Crestor] 1 tab PO HS 11/26/16 06/26/20 History RX: metFORMIN HCl [Metformin HCl] 1 tab PO DAILY 11/26/16 06/26/20 History RX: Carvedilol [Coreg] 3.125 mg PO BID-WM #60 tab 01/30/17 06/26/20 Rx RX: Ferrous Sulfate [Iron] 325 mg PO DAILY 06/26/20 06/26/20 History Enoxaparin Sodium [Lovenox] 80 mg SC Q12HR #20 syringe 06/28/20 Rx RX: Enoxaparin Sodium [Lovenox] 80 mg SC 0900,2100 #20 syringe 06/28/20 Rx RX: Famotidine [Pepcid] 20 mg PO 2100 tab 06/28/20 Rx RX: predniSONE 20 mg PO BID-WM #11 tab 06/28/20 Rx Allergies: No Known Allergies Allergy (Verified 06/26/20 16:21) - Discharge Instructions Activity:: Activity as Tolerated Nourishment:: No Restrictions - Follow up Plan Referrals: Austen Doherty MD [Primary Care Provider] - 7 Days (Please call the office and schedule a follow up appointment) Cameron Sy MD [Active] - 10 Days (Please call the office and schedule a follow up appointment) Disposition: HOME Quality - Care Measures CORE MEASURES:: N/A
--- NOTE | 2020-07-15 16:13 | EKG ---
Test Reason : Blood Pressure : / mmHG Vent. Rate : 075 BPM Atrial Rate : 056 BPM P-R Int : 000 ms QRS Dur : 122 ms QT Int : 464 ms P-R-T Axes : 000 018 254 degrees QTc Int : 518 ms Atrial fibrillation Right bundle branch block T wave abnormality, consider inferolateral ischemia or digitalis effect Abnormal ECG Confirmed by STANISLAW EDWARD DO ([id number]), dictionary editor JERI JENNINGS ([id number]) on 07/15/2020 4:13:16 PM Referred By: Confirmed By:STANISLAW EDWARD DO
== END 2020-06-28 14:45 | disposition home or self-care (01) | DRG 596 ==
LOC: ERS 13:19 → ERHOLD 15:54 → 2NO 22:51 → OBSVTOIN 06-27 14:10
PROVIDERS: ADMIT Internal Medicine; ATTEND Internal Medicine
DX: L53.0 Toxic erythema (principal); I48.11 Longstanding persistent atrial fibrillation; I42.8 Other cardiomyopathies; L27.0 Generalized skin eruption due to drugs and medicaments taken internally; T50.B95A Adverse effect of other viral vaccines, initial encounter; E78.5 Hyperlipidemia, unspecified; Z20.822 Contact with and (suspected) exposure to COVID-19; I25.10 Atherosclerotic heart disease of native coronary artery without angina pectoris; N18.30 Chronic kidney disease, stage 3 unspecified; I12.9 Hypertensive chronic kidney disease with stage 1 through stage 4 chronic kidney disease, or unspecified chronic kidney disease; E11.22 Type 2 diabetes mellitus with diabetic chronic kidney disease; E78.00 Pure hypercholesterolemia, unspecified; Z87.891 Personal history of nicotine dependence; Z85.46 Personal history of malignant neoplasm of prostate; Z90.79 Acquired absence of other genital organ(s); Z90.49 Acquired absence of other specified parts of digestive tract; Z83.3 Family history of diabetes mellitus; Z82.49 Family history of ischemic heart disease and other diseases of the circulatory system; Z79.899 Other long term (current) drug therapy; Z79.01 Long term (current) use of anticoagulants; Z79.82 Long term (current) use of aspirin; Z79.84 Long term (current) use of oral hypoglycemic drugs; Z28.21 Immunization not carried out because of patient refusal
CPT/HCPCS: 36415; 36416; 71045; 80048; 80053; 81003; 81015; 82553; 83605; 84484; 85025; 87040; 87077; 87086; 87186; 87635; 93005; 94760; 96374; 96375; 96376; G0378; J0696; J1200; J1650; J2920; J2930; J3490; S0028; U0003; U0005

== ENCOUNTER 2020-07-03 01:19 | Observation (INO) | payer MEDICARE, OTHER ==
[2020-07-03] MEDS ORDERED: Nitroglycerin 0.4 MG TAB 1 EACH ONE (02:02)
[2020-07-03 02:05] LABS: Anion Gap 16 mmol/L (10-20); BUN (Urea Nitrogen) 17 mg/dL (8.4-25.7); Calc. Creatinine Clearance 0 mL/min (70-130); Calcium 8.7 mg/dL (7.8-10.44); Carbon Dioxide 25 mmol/L (23-31); Chloride 100 mmol/L (98-107); Glucose 130 mg/dL (83-110); Potassium 3.3 mmol/L (3.5-5.1); Sodium 138 mmol/L (136-145)
[2020-07-03 02:07] LABS: #Basophils 0.1 thou/uL (0.0-0.2); #Eosinphils 0.6 thou/uL (0.0-0.7); #Monocytes 0.5 thou/uL (0.11-0.59); %Basophils 1.5 % (0.0-1.0); %Eosinophils 6.6 % (0.0-10.0); %Lymphocytes 21.3 % (21.0-51.0); %Monocytes 5.3 % (0.0-10.0); %Neutrophils 65.3 % (42.0-75.0); Hemoglobin 14.7 g/dL (14.0-18.0); Mean Corpuscular HGB CONC 33.4 g/dL (32.0-36.0); Mean Corpuscular Hemoglobin 31.1 pg (27.0-31.0); Mean Platelet Volume 7.4 fL (7.4-10.4); Platelet Count 220 thou/uL (130-400); RBC Distribution Width 13.7 % (11.5-14.5); Red Blood Cell (RBC) Count 4.74 mill/uL (4.70-6.10); White Blood Cell (WBC) Count 9.2 thou/uL (4.8-10.8)
[2020-07-03] MEDS ORDERED: Nitroglycerin 2% Ointment 1 INCH/1 GM Packet ONE (02:37)
[2020-07-03] MEDS ORDERED: Potassium Chloride 20 MEQ TAB ONE (02:37)
[2020-07-03] MEDS ORDERED: Acetaminophen 650 MG Suppository PR PRN (03:58)
[2020-07-03] MEDS ORDERED: Ondansetron ODT 4 MG TAB PO PRN (03:58)
[2020-07-03] MEDS ORDERED: Acetaminophen 325 MG TAB PO PRN (03:58)
[2020-07-03] MEDS ORDERED: Ondansetron PF 4 MG/2 ML Vial IVP PRN (03:58)
[2020-07-03] MEDS ORDERED: Calcium Carbonate 500 MG ChewTAB PO PRN (03:58)
[2020-07-03] MEDS ORDERED: Nitroglycerin 0.4 MG TAB (25 Tab Bottle) SL PRN (03:58)
[2020-07-03] MEDS ORDERED: Aspirin 325 MG TAB PO SCH (04:00)
--- NOTE | 2020-07-03 04:02 | PDOC.HHP ---
Hospitalist HPI - History of Present Illness chest pain History of Present Illness: Case of an 89y/o male with a pmhx of DM, htn, and atrial fibrillation who presents to ED with complaint of chest pain. patient states he was on his usual state of health until today when he was awoken by chest pain. patient states pain was 10/10 in the restrosternal area, described as pressure quality with associated sob and nausea, patient denies palpitations or diaphoresis. states he took some baby asa at home and it improved the pain but still was 8/10, for which he decided to comes to hospital for evaluation. at ed patient had nitro paste with resolution of his chest pain, hospitalist was called for further evaluation and management. of note patient was started on eliquis and amiodarone 2 weeks ago for his afib, stopped a few days ago due to possible allergic reaction and started on lovenox and instructed to follow up with Dr. Webber Hospitalist ROS - Review of Systems All other systems reviewed; all pertinent +/- noted in HPI/Subj Hospitalist History - Past Medical History Heme/Onc: reports: Cancer (Prostate cancer) Renal/: reports: Chronic renal insuff (Stage III) - Past Surgical History Past Surgical History: reports: Cholecystectomy, Other (Radical prostatectomy) - Social History Alcohol: reports: None Drugs: reports: none - Exam General Appearance: NAD, awake alert Eye: PERRL, anicteric sclera ENT: normocephalic atraumatic, no oropharyngeal lesions, moist mucosa Neck: supple, symmetric, no JVD Heart: RRR, no murmur, no gallops Respiratory: CTAB, no wheezes, no rales Gastrointestinal: soft, non-tender, non-distended Extremities: no cyanosis, no clubbing, no edema Skin: normal turgor, no lesions, no rashes Neurological: cranial nerve grossly intact, normal sensation to touch, no weakness Musculoskeletal: normal tone, normal strength, no muscle wasting Psychiatric: normal affect, normal behavior, A&O x 3 Hospitalist Results - Labs Result Diagrams: 07/03/20 01:39 07/03/20 01:39 Lab results: WBC 9.2 thou/uL (4.8-10.8) 07/03/20 01:39 Hgb 14.7 g/dL (14.0-18.0) 07/03/20 01:39 Hct 44.1 % (42.0-52.0) 07/03/20 01:39 MCV 93.0 fL (78.0-98.0) 07/03/20 01:39 Plt Count 220 thou/uL (130-400) 07/03/20 01:39 Neutrophils % 65.3 % (42.0-75.0) 07/03/20 01:39 Sodium 138 mmol/L (136-145) 07/03/20 01:39 Potassium 3.3 mmol/L (3.5-5.1) L 07/03/20 01:39 Chloride 100 mmol/L (98-107) 07/03/20 01:39 Carbon Dioxide 25 mmol/L (23-31) 07/03/20 01:39 BUN 17 mg/dL (8.4-25.7) 07/03/20 01:39 Creatinine 1.18 mg/dL (0.7-1.3) 07/03/20 01:39 Glucose 130 mg/dL (83-110) H 07/03/20 01:39 Calcium 8.7 mg/dL (7.8-10.44) 07/03/20 01:39 Troponin I 0.023 ng/mL (< 0.028) 07/03/20 01:39 B-Natriuretic Peptide 151.8 pg/mL (0-100) H 07/03/20 01:39 Hospitalist H&P A/P - Problem (1) Chest pain Code(s): R07.9 - CHEST PAIN, UNSPECIFIED Status: Acute (2) Atrial fibrillation Code(s): I48.91 - UNSPECIFIED ATRIAL FIBRILLATION Status: Chronic Qualifiers: Atrial fibrillation type: longstanding persistent Qualified Code(s): I48.11 - Longstanding persistent atrial fibrillation (3) CAD (coronary artery disease) Code(s): I25.10 - ATHSCL HEART DISEASE OF [place] CORONARY ARTERY W/O ANG PCTRS Status: Chronic Qualifiers: Coronary Disease-Associated Artery/Lesion type: [place] artery [place] vs. transplanted heart: [place] heart Associated angina: without angina Qualified Code(s): I25.10 - Atherosclerotic heart disease of [place] coronary artery without angina pectoris (4) Diabetes Code(s): E11.9 - TYPE 2 DIABETES MELLITUS WITHOUT COMPLICATIONS Status: Chronic Qualifiers: Diabetes mellitus type: type 2 Diabetes mellitus skilled nursing insulin use: without skilled nursing use (5) HTN (hypertension) Code(s): I10 - ESSENTIAL (PRIMARY) HYPERTENSION Status: Chronic Qualifiers: Hypertension type: essential hypertension Qualified Code(s): I10 - Essential (primary) hypertension (6) Prostate CA Code(s): C61 - MALIGNANT NEOPLASM OF PROSTATE Status: Chronic - Plan Plan: 89 y/o male with the stated pmhx who presents with chest pain chest pain - ekg w/o st ishcemic changes - cxr wnl - initial troponin negative will trend - cardiac monitoring - on optimal cad medication with beta angeline acei statin and asa - stress test in am - nitro paste dm -acc+ss atrial fibrillation - continue rate control w beta angeline - continue AC w lovenox - sap portal architect dr webber - on adequate ventricular response
[2020-07-03] MEDS ORDERED: Dextrose 50% Abboject 50 ML SYRINGE SLOW IVP PRN (04:15)
[2020-07-03] MEDS ORDERED: HumaLOG 300 UNITS/3 ML VIAL SC PRN (04:15)
[2020-07-03] MEDS ORDERED: Dextrose 5% in Water 1,000 ML IV PRN (04:15)
[2020-07-03 04:43] VITALS: BMI 28.8
[2020-07-03 05:16] LABS: Troponin I 0.039 ng/mL (< 0.028)
[2020-07-03] MEDS ORDERED: Carvedilol 3.125 MG TAB PO SCH (08:00)
--- NOTE | 2020-07-03 08:03 | RAD ---
Portable frontal chest radiograph: 07/03/2020 COMPARISON: 06/26/2020 HISTORY: Chest pain, shortness of breath FINDINGS: Stable heart and mediastinal contours. No focal consolidation or alveolar edema. IMPRESSION: No acute findings.
[2020-07-03] MEDS ORDERED: Aspirin 325 MG TAB ONE (08:20)
[2020-07-03] MEDS ORDERED: Enoxaparin Sodium 80 MG/0.8 ML SYRINGE ONE (08:20)
[2020-07-03 08:24] LABS: Troponin I 0.043 ng/mL (< 0.028)
[2020-07-03] MEDS ORDERED: Lisinopril 20 MG TAB PO SCH (09:00)
[2020-07-03] MEDS ORDERED: Enoxaparin Sodium 80 MG/0.8 ML SYRINGE SC SCH (09:00)
[2020-07-03] MEDS ORDERED: Apixaban 5 MG TAB PO SCH (09:00)
[2020-07-03] MEDS ORDERED: Amiodarone 200 MG TAB PO SCH (09:00)
[2020-07-03] MEDS ORDERED: ADENOSINE 60 MG/20 ML VIAL ONE (12:58)
--- NOTE | 2020-07-03 15:28 | NM ---
Nuclear medicine Cardiac myocardial perfusion SPECT Ejection fraction study Wall motion cine: DATE:07/03/2020 9:36 AM INDICATION: Chest pain TECHNIQUE: Number of days:1 Stress study: Technetium 99m-sestamibi (Cardiolite) dose:30.20 mCi FINDINGS: Cardiac (myocardial perfusion) SPECT There are no myocardial perfusion defects. Ejection fraction study Left ventricular EF = 48% Wall motion cine Normal wall motion and thickening IMPRESSION: 1. No definite myocardial perfusion defect seen on the stress only evaluation. 2. Normal wall motion and thickening with estimated LVEF of 48%.
--- NOTE | 2020-07-03 15:33 | PDOC.DS.DS ---
Provider - Provider Date of Admission: 07/03/20 02:58 Date of Discharge: 07/03/20 Admitting Provider: Pietro Lopes Consultations: None Primary Care Physician: Austen Doherty MD Course - Hospital Course Hospital Course: Patient presented to the hospital with chest pain. The chest pain had improved with aspirin at home. He resolved with nitroglycerin in the hospital. Patient had indeterminate cardiac markers. He had a nuclear medicine stress test that showed no evidence for ischemia. Patient was without chest pain throughout his hospitalization. He has a follow-up appointment already scheduled with Dr. Sy tomorrow. We will discharge him home. Procedures: Nuclear medicine Cardiac myocardial perfusion SPECT Ejection fraction study Wall motion cine: DATE:07/03/2020 9:36 AM INDICATION: Chest pain TECHNIQUE: Number of days:1 Stress study: Technetium 99m-sestamibi (Cardiolite) dose:30.20 mCi FINDINGS: Cardiac (myocardial perfusion) SPECT There are no myocardial perfusion defects. Ejection fraction study Left ventricular EF = 48% Wall motion cine Normal wall motion and thickening IMPRESSION: 1. No definite myocardial perfusion defect seen on the stress only evaluation. 2. Normal wall motion and thickening with estimated LVEF of 48%. Resuscitation Status: 07/03/20 03:58 Resuscitation Status Routine Resuscitation Status: FULL: Full Resuscitation - Labs Lab Results: 07/03/20 01:39 07/03/20 01:39 Abnormal Lab Results - Last 48 hrs 07/03/20 01:39: MCH 31.1 H, Basophils % 1.5 H 07/03/20 01:39: Potassium 3.3 L 07/03/20 01:39: B-Natriuretic Peptide 151.8 H 07/03/20 04:21: Troponin I 0.039 H 07/03/20 07:40: Troponin I 0.043 H - Physical Exam Vitals: Vital Signs (12 hours) Pulse Resp BP BP Pulse Ox 07/03/20 09:36 154/98 H 07/03/20 05:10 67 15 165/91 H 96 Weight Weight 184 lb 4.903 oz Physical Exam: The patient was seen and examined on the day of discharge. Problem - Discharge Plan Assessment: (1) Chest pain-acute coronary syndrome ruled out Code(s): R07.9 - CHEST PAIN, UNSPECIFIED Status: Acute (2) Atrial fibrillation Code(s): I48.91 - UNSPECIFIED ATRIAL FIBRILLATION Status: Chronic Qualifiers: Atrial fibrillation type: longstanding persistent Qualified Code(s): I48.11 - Longstanding persistent atrial fibrillation (3) CAD (coronary artery disease) Code(s): I25.10 - ATHSCL HEART DISEASE OF [place] CORONARY ARTERY W/O ANG PCTRS Status: Chronic Qualifiers: Coronary Disease-Associated Artery/Lesion type: [place] artery [place] vs. transplanted heart: [place] heart Associated angina: without angina Qualified Code(s): I25.10 - Atherosclerotic heart disease of [place] coronary artery without angina pectoris (4) Diabetes Code(s): E11.9 - TYPE 2 DIABETES MELLITUS WITHOUT COMPLICATIONS Status: Chronic Qualifiers: Diabetes mellitus type: type 2 Diabetes mellitus fci insulin use: without predatory animal exterminator use (5) HTN (hypertension) Code(s): I10 - ESSENTIAL (PRIMARY) HYPERTENSION Status: Chronic Qualifiers: Hypertension type: essential hypertension Qualified Code(s): I10 - Essential (primary) hypertension (6) Prostate CA Code(s): C61 - MALIGNANT NEOPLASM OF PROSTATE Status: Chronic Plan of Treatment: Continue home medications and follow-up with Dr. Sy tomorrow as previously scheduled. - Time spent with Patient (mins): 20 Plan - Discharge Medications Home Medications: Medication Instructions Recorded Confirmed Type Aspirin [Aspirin EC] 81 mg PO DAILY 11/26/16 06/26/20 History Lisinopril 10 mg PO DAILY 11/26/16 06/26/20 History Rosuvastatin Calcium [Crestor] 1 tab PO HS 11/26/16 06/26/20 History metFORMIN HCl [Metformin HCl] 1 tab PO DAILY 11/26/16 06/26/20 History Carvedilol [Coreg] 3.125 mg PO BID-WM #60 tab 01/30/17 06/26/20 Rx Ferrous Sulfate [Iron] 325 mg PO DAILY 06/26/20 06/26/20 History Enoxaparin Sodium [Lovenox] 80 mg SC 0900,2100 #20 syringe 06/28/20 Rx Enoxaparin Sodium [Lovenox] 80 mg SC Q12HR #20 syringe 06/28/20 Rx Famotidine [Pepcid] 20 mg PO 2100 tab 06/28/20 Rx predniSONE 20 mg PO BID-WM #11 tab 06/28/20 Rx Allergies: No Known Allergies Allergy (Verified 06/26/20 16:21) - Discharge Instructions Activity:: Activity as Tolerated Nourishment:: Heart Healthy Diet Therapies:: Not Applicable Equipment/Supplies:: Not Applicable IV Therapy:: Not Applicable - Follow up Plan Referrals: Austen Doherty MD [Primary Care Provider] - Cameron Sy MD [Active] - (tomorrow as previously scheduled) Disposition: HOME Quality - Care Measures CORE MEASURES:: N/A
[2020-07-03 17:08] VITALS: BP 168/79; TEMP 98
[2020-07-03] MEDS ORDERED: Rosuvastatin 10 MG TAB PO SCH (21:00)
== END 2020-07-03 18:16 | disposition home or self-care (01) ==
LOC: ERS 01:19 → ERHOLD 02:58 → 2NO 16:55
PROVIDERS: ADMIT Internal Medicine; ATTEND Emergency Medicine
DX: R07.89 Other chest pain (principal); I48.11 Longstanding persistent atrial fibrillation; I25.10 Atherosclerotic heart disease of native coronary artery without angina pectoris; I12.9 Hypertensive chronic kidney disease with stage 1 through stage 4 chronic kidney disease, or unspecified chronic kidney disease; E11.22 Type 2 diabetes mellitus with diabetic chronic kidney disease; N18.30 Chronic kidney disease, stage 3 unspecified; C61 Malignant neoplasm of prostate; Z79.82 Long term (current) use of aspirin; Z79.84 Long term (current) use of oral hypoglycemic drugs; Z79.899 Other long term (current) drug therapy
CPT/HCPCS: 71045; 78452; 80048; 82962; 83880; 84484 ×2; 85025; 93005; 93017; 99285; A9500; G0378 ×2; 36415; 36416; J0153; J1650

== ENCOUNTER 2020-09-11 16:01 | Outpatient (CLI) | payer MEDICARE, OTHER ==
[2020-09-11 17:34] LABS: Anion Gap 11 mmol/L (10-20); BUN (Urea Nitrogen) 14 mg/dL (8.4-25.7); Calc. Creatinine Clearance 0 mL/min (70-130); Calcium 9.2 mg/dL (7.8-10.44); Carbon Dioxide 30 mmol/L (23-31); Chloride 104 mmol/L (98-107); Glucose 140 mg/dL (83-110); Potassium 3.8 mmol/L (3.5-5.1); Sodium 141 mmol/L (136-145)
[2020-09-11 17:52] LABS: #Basophils 0.1 10x3/uL (0.0-0.2); #Eosinphils 0.1 10x3/uL (0.0-0.5); #Monocytes 0.5 10x3/uL (0.0-1.1); %Basophils 0.8 % (0.0-2.0); %Eosinophils 1.1 % (0.0-6.0); %Lymphocytes 24.6 % (18.0-47.0); %Monocytes 8.2 % (0.0-10.0); %Neutrophils 65.1 % (40.0-75.0); Mean Corpuscular HGB CONC 32.4 g/dL (32.0-36.0); Mean Corpuscular Hemoglobin 29.9 pg (27.0-33.0); Mean Corpuscular Volume 92.3 fl (81.2-95.1); Mean Platelet Volume 10.4 fl (7.4-10.4); Platelet Count 191 10x3/uL (150-450); RBC Distribution Width 14.4 % (11.5-14.5); Red Blood Cell (RBC) Count 4.68 10x6/uL (4.32-5.72); White Blood Cell (WBC) Count 6.1 10x3/uL (3.5-10.5)
[2020-09-12 05:52] LABS: SARS-CoV-2 PCR by NAA Not Detected (NotDetected)
== END 2020-09-11 16:02 | disposition home or self-care (01) ==
LOC: LABBT 16:01
PROVIDERS: ATTEND Internal Medicine Cardiovascular Disease
DX: Z01.812 Encounter for preprocedural laboratory examination (principal); Z20.822 Contact with and (suspected) exposure to COVID-19
CPT/HCPCS: 80048; 85025; U0003; U0005; 87635

== ENCOUNTER 2020-09-14 10:42 | Inpatient (IN) | payer MEDICARE, OTHER ==
[2020-09-13 12:47] VITALS: BMI 26.6
[2020-09-14] MEDS ORDERED: ePHEDrine Sulfate 50 MG/10 ML VIAL ONE (12:05)
[2020-09-14] MEDS ORDERED: EPINEPHrine 1 MG/10 ML Abboject SYRINGE ONE (12:05)
[2020-09-14] MEDS ORDERED: PROPOFOL 200 MG/20 ML VIAL ONE (12:05)
[2020-09-14] MEDS ORDERED: PROPOFOL 0 ML ONE (12:09)
[2020-09-14] MEDS ORDERED: hydrALAZINE 20 MG/ML VIAL ONE (12:22)
[2020-09-14] MEDS ORDERED: Apixaban 5 MG TAB PO SCH (21:00)
[2020-09-14] MEDS: Enoxaparin Sodium 80 MG/0.8 ML SYRINGE SC SCH (22:36)
[2020-09-15] MEDS: Aspirin 81 mg Enteric Coated Tablet PO SCH (08:23)
[2020-09-15] MEDS: Ferrous Sulfate 325 MG TAB PO SCH (08:23)
[2020-09-15] MEDS: Amiodarone 200 MG TAB PO SCH (08:24)
[2020-09-15] MEDS: Enoxaparin Sodium 80 MG/0.8 ML SYRINGE SC SCH ×2 (08:24→20:36)
[2020-09-15] MEDS: Lisinopril 10 MG TAB PO SCH (08:24)
[2020-09-15] MEDS: metFORMIN 500 MG TAB PO SCH (08:24)
[2020-09-15] MEDS ORDERED: CEFAZOLIN 2 GM in Premix Bag 1 BAG IVPB SCH (10:30)
[2020-09-16] MEDS: Lisinopril 10 MG TAB PO SCH (09:18)
[2020-09-16] MEDS: Enoxaparin Sodium 80 MG/0.8 ML SYRINGE SC SCH ×2 (09:18→21:03)
[2020-09-16] MEDS: metFORMIN 500 MG TAB PO SCH (09:18)
[2020-09-16] MEDS: Aspirin 81 mg Enteric Coated Tablet PO SCH (09:18)
[2020-09-16] MEDS: Amiodarone 200 MG TAB PO SCH (09:18)
[2020-09-16] MEDS: Ferrous Sulfate 325 MG TAB PO SCH (09:18)
[2020-09-17] MEDS: metFORMIN 500 MG TAB PO SCH (09:31)
[2020-09-17] MEDS: Aspirin 81 mg Enteric Coated Tablet PO SCH (09:31)
[2020-09-17] MEDS: Lisinopril 10 MG TAB PO SCH (09:31)
[2020-09-17] MEDS: Ferrous Sulfate 325 MG TAB PO SCH (09:31)
[2020-09-17] MEDS: Enoxaparin Sodium 80 MG/0.8 ML SYRINGE SC SCH (09:31)
[2020-09-17] MEDS ORDERED: Lisinopril 10 MG TAB PO SCH (11:30)
[2020-09-17] MEDS ORDERED: Amlodipine 5 MG TAB PO SCH (17:45)
[2020-09-17] MEDS: hydrALAZINE 20 MG/ML VIAL SLOW IVP PRN (20:12)
[2020-09-18 04:59] LABS: #Eosinphils 0.1 thou/uL (0.0-0.7); #Lymphocytes 1.2 thou/uL (1.20-3.40); #Monocytes 0.6 thou/uL (0.11-0.59); #Neutrophils 5.5 thou/uL (1.40-6.50); %Basophils 0.6 % (0.0-1.0); %Eosinophils 0.8 % (0.0-10.0); %Lymphocytes 16.7 % (21.0-51.0); Hemoglobin 13.9 g/dL (14.0-18.0); Mean Corpuscular HGB CONC 31.5 g/dL (32.0-36.0); Mean Corpuscular Hemoglobin 29.7 pg (27.0-31.0); Mean Corpuscular Volume 94.4 fL (78.0-98.0); Mean Platelet Volume 8.2 fL (7.4-10.4); Platelet Count 177 thou/uL (130-400); RBC Distribution Width 14.3 % (11.5-14.5); Red Blood Cell (RBC) Count 4.67 mill/uL (4.70-6.10); White Blood Cell (WBC) Count 7.4 thou/uL (4.8-10.8)
[2020-09-18 05:26] LABS: Anion Gap 12 mmol/L (10-20); BUN (Urea Nitrogen) 12 mg/dL (8.4-25.7); Calc. Creatinine Clearance 46 mL/min (70-130); Calcium 9.3 mg/dL (7.8-10.44); Carbon Dioxide 31 mmol/L (23-31); Chloride 101 mmol/L (98-107); Glucose 134 mg/dL (83-110); Potassium 3.8 mmol/L (3.5-5.1); Sodium 140 mmol/L (136-145)
[2020-09-18] MEDS: Sodium Chloride 0.9% 1,000 ML IV SCH ×2 (05:53→16:24)
[2020-09-18] MEDS: Ferrous Sulfate 325 MG TAB PO SCH (08:12)
[2020-09-18] MEDS: metFORMIN 500 MG TAB PO SCH (08:12)
[2020-09-18] MEDS: Aspirin 81 mg Enteric Coated Tablet PO SCH (08:12)
[2020-09-18] MEDS ORDERED: Gentamicin 80 MG/2 ML VIAL ONE (08:41)
[2020-09-18] MEDS ORDERED: CEFAZOLIN 1 GM VIAL ONE (08:41)
[2020-09-18] MEDS ORDERED: Amlodipine 5 MG TAB PO SCH (09:00)
[2020-09-18] MEDS ORDERED: Lisinopril 20 MG TAB PO SCH (09:00)
[2020-09-18] MEDS ORDERED: Lidocaine 1% (PF) 30 ML VIAL ONE (09:02)
[2020-09-18] MEDS ORDERED: Fentanyl 100 MCG/2 ML VIAL ONE (09:40)
[2020-09-18] MEDS ORDERED: Midazolam HCl 2 mg/2 ml Vial ONE (09:40)
[2020-09-18] MEDS ORDERED: Vancomycin HCl 500 MG VIAL ONE (10:45)
[2020-09-18] MEDS ORDERED: Iopamidol 370 76% 50 ML VIAL FS ONE (11:20)
[2020-09-18] MEDS: Amiodarone 200 MG TAB PO SCH (11:22)
[2020-09-18] MEDS: hydrALAZINE 20 MG/ML VIAL SLOW IVP PRN (11:23)
[2020-09-18] MEDS ORDERED: Acetaminophen 325 MG TAB PO PRN ×2 (15:13)
[2020-09-18] MEDS: Cephalexin 250 MG CAP PO SCH ×2 (16:22→20:42)
[2020-09-18] MEDS: Carvedilol 6.25 MG TAB PO SCH (16:22)
[2020-09-19] MEDS: Sodium Chloride 0.9% 1,000 ML IV SCH (03:12)
[2020-09-19 08:14] VITALS: BP 171/81; TEMP 98.5
[2020-09-19] MEDS ORDERED: Carvedilol 6.25 MG TAB PO SCH (09:00)
[2020-09-19] MEDS ORDERED: Lisinopril 10 MG TAB PO SCH (09:00)
[2020-09-19] MEDS: Ferrous Sulfate 325 MG TAB PO SCH (09:28)
[2020-09-19] MEDS: Carvedilol 6.25 MG TAB PO SCH (09:29)
[2020-09-19] MEDS: Cephalexin 250 MG CAP PO SCH (09:29)
[2020-09-19] MEDS: Amiodarone 200 MG TAB PO SCH (09:29)
[2020-09-19] MEDS: Aspirin 81 mg Enteric Coated Tablet PO SCH (09:29)
[2020-09-21] MEDS ORDERED: Apixaban 5 MG TAB PO SCH (09:00)
== END 2020-09-19 11:00 | disposition home or self-care (01) | DRG 243 ==
LOC: CCL 10:42 → 2SW 12:36 → OBSVTOIN 09-15 09:28 → 2NO 09-15 16:03
PROVIDERS: ADMIT Internal Medicine Cardiovascular Disease; ATTEND Internal Medicine Cardiovascular Disease
PROC: B24BZZ4 Ultrasonography of Heart with Aorta, Transesophageal (ICD-10-PCS; 2020-09-14)
PROC: 5A2204Z Restoration of Cardiac Rhythm, Single (ICD-10-PCS; 2020-09-15)
PROC: 0JH606Z Insertion of Pacemaker, Dual Chamber into Chest Subcutaneous Tissue and Fascia, Open Approach (ICD-10-PCS; principal; 2020-09-18)
PROC: 02H63JZ Insertion of Pacemaker Lead into Right Atrium, Percutaneous Approach (ICD-10-PCS; 2020-09-18)
PROC: 02HK3JZ Insertion of Pacemaker Lead into Right Ventricle, Percutaneous Approach (ICD-10-PCS; 2020-09-18)
DX: I49.5 Sick sinus syndrome (principal); I48.19 Other persistent atrial fibrillation; I42.8 Other cardiomyopathies; I25.10 Atherosclerotic heart disease of native coronary artery without angina pectoris; I10 Essential (primary) hypertension; E11.9 Type 2 diabetes mellitus without complications; E78.00 Pure hypercholesterolemia, unspecified; L27.0 Generalized skin eruption due to drugs and medicaments taken internally; I08.1 Rheumatic disorders of both mitral and tricuspid valves; I49.9 Cardiac arrhythmia, unspecified; Z20.822 Contact with and (suspected) exposure to COVID-19; T50.B95A Adverse effect of other viral vaccines, initial encounter; Z87.891 Personal history of nicotine dependence; Z82.49 Family history of ischemic heart disease and other diseases of the circulatory system
CPT/HCPCS: 33208; 36005; 36415; 71045; 75820; 80048; 85025; 92960; 93005; 93010; 93306; 93312; 96372; 97139; 99152; 99153; C1785; C1898; G0378; J0171; J0360; J0690; J1580; J1650; J2001; J2250; J2704; J3010; J3370; Q9967